=== PATIENT | male | born 1935 | race Caucasian/White ===

== ENCOUNTER 2020-05-06 15:29 | Outpatient (CLI) | payer OTHER, MEDICARE, SELFPAY ==
[2020-05-06 16:48] LABS: Prostate Specific Antigen 0.583 ng/mL (0-4)
[2020-05-10 00:52] LABS: Testosterone, Free 6.3 pg/mL (6.0-73.0)
== END 2020-05-06 15:30 | disposition home or self-care (01) ==
LOC: LAB 15:36
PROVIDERS: PCP Emergency Medicine Emergency Medical Services; Visit Provider Emergency Medicine Emergency Medical Services
DX: I10 Essential (primary) hypertension (principal); E11.9 Type 2 diabetes mellitus without complications
CPT/HCPCS: 84153; 84402